=== PATIENT | female | born 1985 | race Hispanic/Latino ===

== ENCOUNTER 2020-10-08 09:20 | Outpatient (CLI) | payer SELFPAY ==
--- NOTE | ~2020-10-08 | MMUS_ITS ---
EXAMINATION: MM diagnostic yoav BI w barbara, US breast BI complete HISTORY: Bilateral breast pain, possible left breast dimpling TECHNIQUE: ML, MLO and cc 3-D tomosynthesis images of both breasts were performed and synthetic 2-D i mages were generated. CAD analysis was submitted and interpreted. High resolution complete bilateral breast ultrasound was performed. COMPARISON: None BREAST PARENCHYMAL COMPOSITION: There are scattered areas of fibroglandular density. FINDINGS: MAMMOGRAPHIC FINDINGS: No suspicious mass or architectural distortion, malignant calcification, skin thickening or retractio n is detected. ULTRASOUND: No suspicious mass, shadowing or cyst or other significant sonographic finding of either breast is no leonard. IMPRESSION: 1. No mammographic evidence of malignancy 2. Routine mammographic screening is recommended. BI-RADS Category 1: Negative Reviewed, dictated and finalized at location A. IMPRESSION: 1. No mammographic evidence of malignancy 2. Routine mammographic screening is recommended. BI-RADS Category 1: Negative
== END 2020-10-08 09:21 ==
PROVIDERS: Visit Provider Nurse Practitioner Family
DX: N64.4 Mastodynia (principal)
CPT/HCPCS: 76641; 77062; 77066; G0279

== ENCOUNTER 2021-09-24 08:20 | Emergency (ER) | payer SELFPAY ==
--- NOTE | ~2021-09-24 | XR_ITS ---
XR chest 2V DATE: 09/24/2021 08:51 INDICATION: Left chest pain, discomfort. Left arm and hand weakness. Recent Covid infection. TECHNIQUE: PA and lateral views COMPARISON: None FINDINGS: Normal heart size. No hilar or mediastinal enlargement. There is moderate bilateral hyperinflation. No pulmonary infiltrate or consolidation, pleural effusio n or pulmonary vascular congestion or pneumothorax. Osteopenia. IMPRESSION: Moderate bilateral hyperinflation No active cardiopulmonary disease Osteopenia Reviewed, dictated and finalized at location A.
[2021-09-24 08:21] VITALS: BP 141/75; PULSE 80; RESP 17; TEMP 36.6; O2SAT 100
--- NOTE | 2021-09-24 08:25 | ECG_ITS ---
Measurements Intervals [place] Rate: 68 P: 60 [place]: 157 QRS: 65 QRSD: 71 T: 42 QT: 342 QTc: 366 Interpretive Statements SINUS RHYTHM WITH MARKED SINUS ARRHYTHMIA LOW QRS VOLTAGE IN PRECORDIAL LEADS [QRS DEFLECTION < 1.0 mV IN CHEST LEADS] NO PREVIOUS ECG AVAILABLE FOR COMPARISON Electronically Signed On 09-24-2021 22:10:03 CDT by Melyssa Butterfield M.D.
[2021-09-24 08:29] VITALS: PULSE 62
[2021-09-24] MEDS: ASPIRIN 81 MG CHEWABLE TABLET 324 MG PO (08:37)
[2021-09-24 08:43] LABS: Basophils Percent Auto 0.3 % (0.2-1.2); Eosinophils Absolute Auto 0.1 K/mm3 (0-0.3); Eosinophils Percent Auto 1.5 % (0-4.4); Hematocrit 39.8 % (37.0-47.0); Immature Granulocyte Absolute 0.02 K/mm3 (0.00-0.031); Immature Granulocyte Percent A 0.3 % (0-0.5); Lymphocytes Absolute Auto 1.69 K/mm3 (0.9-3.2); Lymphocytes Percent Auto 22.7 % (18.3-44.2); Mean Corpuscular HGB Conc 32.7 g/dl (32-36); Mean Corpuscular Volume 85.6 fl (80-100); Mean Platelet Volume 10.7 fl (7.4-10.4); Monocytes Absolute Auto 0.4 K/mm3 (0.1-0.6); Monocytes Percent Auto 5.7 % (2.6-8.5); Neutrophils Absolute Auto 5.2 K/mm3 (1.3-6.7); Neutrophils Percent Auto 69.5 % (45.5-73.1); Platelet Count Result 264 k/mm3 (150-375); Red Blood Count 4.65 M/mm3 (4.2-5.4); Red Cell Distribution Width 13.7 % (11.5-14.5); White Blood Count 7.4 K/mm3 (4.5-10.0)
[2021-09-24 08:54] LABS: INR 1.1; Prothrombin Time 13.2 Seconds (11.1-14.7)
[2021-09-24 08:57] LABS: Alanine Aminotransferase 16 U/L (6-35); Alkaline Phosphatase 59 U/L (38-126); Anion Gap 6 mmol/L (8-16); Aspartate Amino Transferase 24 U/L (14-36); Bilirubin,Total 0.4 mg/dL (0.2-1.3); Blood Urea Nitrogen 9 mg/dL (7-17); Calcium 8.5 mg/dL (8.4-10.2); Carbon Dioxide 25 mmol/L (22-30); Chloride 106 mmol/L (98-107); Estimated CRCL calculation 105 ml/min; Estimated Glomerular Filt Rate > 60; Glucose 109 mg/dL (65-110); Lipase 59 U/L (23-300); Potassium 4.2 mmol/L (3.4-5.0); Sodium 137 mmol/L (137-145)
[2021-09-24 09:07] LABS: Troponin I < 0.012 ng/mL (0.000-0.034)
[2021-09-24 09:15] LABS: D Dimer 0.31 ug/mL (<0.48)
[2021-09-24 09:44] VITALS: BP 102/67; PULSE 58; RESP 12; O2SAT 100
--- NOTE | 2021-09-24 10:30 | ED.CHESTPAIN ---
HPI - Chest Pain General Chief Complaint: Chest Pain Stated Complaint: chest pain after covid Time Seen by Provider: 09/24/21 08:25 Source: patient Mode of arrival: ambulatory Limitations: no limitations History of Present Illness HPI narrative: 36-year-old otherwise healthy here with complaints of left-sided chest pain on and off for 1 week, patient states that she was recently diagnosed with COVID while at work this morning started having pain and left arm tingling. She denies any shortness of breath. No history of fever or chills. Denies any cough. No previous history of coronary artery disease MD complaint: chest pain Pain location: left chest Pain radiation: left arm Quality: aching Relieving factors: nothing Exacerbating factors: nothing Treatment prior to arrival: none Related Data Home Medications Medication Instructions Recorded Confirmed No Home Medications 09/24/21 09/24/21 Allergies Allergy/AdvReac Type Severity Reaction Status Date / Time No Known Allergies Allergy Unknown Unverified 09/24/21 08:29 Review of Systems Review of Systems: All systems reviewed & are unremarkable except as noted in HPI and below Constitutional: Constitutional: Reports no additional constitutional complaints Eyes: Eyes: Reports no additional eye complaints ENT: Reports system reviewed and no additional complaints, except as documented Cardiovascular: Cardiovascular: Reports as per HPI Respiratory: Respiratory: Reports no additional respiratory complaints Gastrointestinal: Gastrointestinal: Reports no additional gastrointestinal complaints Musculoskeletal: Musculoskeletal: Reports no additional musculoskeletal complaints Integumentary/Breasts: Skin/Breast: Reports system reviewed and no additional complaints, except as docu Exam Narrative: GENERAL: Well-appearing, well-nourished, and in no acute distress. HEAD: Normocephalic, atraumatic. EYES: PERRLA and EOMI.. NECK: Supple. CHEST: Clear to auscultation. No respiratory distress. HEART: Regular rate and rhythm. No murmur heard. Normal peripheral pulses. ABDOMEN: Soft, nontender, nondistended, normal active bowel sounds. EXTREMITIES: Normal range of motion. No edema. SKIN: Warm, dry, no rash. NEURO: No focal deficits. Alert and oriented x3. PSYCH: Normal mood and affect. Course Course Emergency Course: I did inform patient about her lab work, chest x-ray findings. She states she is feeling slightly better. Her pain most likely is musculoskeletal versus pleuritic. Advised her to take Tylenol ibuprofen for pain. Vital Signs Vital signs: Vital Signs Temperature 36.6 C 09/24/21 08:21 Pulse Rate 80 09/24/21 08:21 Respiratory Rate 17 09/24/21 08:21 Blood Pressure 141/75 H 09/24/21 08:21 Pulse Oximetry 100 09/24/21 08:21 Temperature 36.6 C 09/24/21 08:21 Pulse Rate 58 L 09/24/21 09:44 Respiratory Rate 12 09/24/21 09:44 Blood Pressure 102/67 09/24/21 09:44 Pulse Oximetry 100 09/24/21 09:44 MDM - Chest Pain Differential Diagnosis Differential diagnosis: Likely unstable angina pectoris, atypical chest pain and costochondritis Medical Records Data Attestation: I reviewed the patient's medical records. Lab Data Attestation: I reviewed the patient's lab results. Result diagrams: 09/24/21 08:33 09/24/21 08:33 Labs: Lab Results 09/24/21 09/24/21 09/24/21 Range/Units 08:33 08:33 08:33 WBC 7.4 (4.5-10.0) K/mm3 RBC 4.65 (4.2-5.4) M/mm3 Hgb 13.0 (12.0-15.0) g/dL Hct 39.8 (37.0-47.0) % MCV 85.6 (80-100) fl MCH 28.0 (26-34) pg MCHC 32.7 (32-36) g/dl RDW 13.7 (11.5-14.5) % Plt Count 264 (150-375) k/mm3 MPV 10.7 H (7.4-10.4) fl Immature Gran % (Auto) 0.3 (0-0.5) % Neut % (Auto) 69.5 (45.5-73.1) % Lymph % (Auto) 22.7 (18.3-44.2) % [place] % (Auto) 5.7 (2.6-8.5) % Eos % (Auto) 1.5 (0-4.4) % Baso % (Auto) 0.3 (0
[2021-09-24 11:21] VITALS: BP 105/74; PULSE 70; RESP 18; O2SAT 100
== END 2021-09-24 11:22 | disposition home or self-care (01) ==
PROVIDERS: Emergency Provider Family Medicine
DX: R07.89 Other chest pain (principal); Z86.16 Personal history of COVID-19; M85.88 Other specified disorders of bone density and structure, other site
CPT/HCPCS: 36415; 71046; 80053; 83690; 84484; 85025; 85380; 85610; 85730; 93005; 99284; A9270

== ENCOUNTER 2023-09-30 15:58 | Emergency (ER) | payer OTHER, SELFPAY ==
[2023-09-30] VITALS (7 sets, daily range): BP systolic 115–139; BP diastolic 71–86; PULSE 70–96; RESP 13–22; TEMP 36.7; O2SAT 97–100
--- NOTE | ~2023-09-30 | XR_ITS ---
XR chest 2V Ordering provider: Josué Gillespie History: 38 years Female with . CP, COUGH, CHILLS, STARTED YESTERDAY . Comparison: September 24, 2021 FINDINGS: MEDIASTINUM: The cardiac silhouette is not enlarged. LUNGS: No infiltrates, effusions or pneumothorax. OTHER: No free air under the diaphragm. IMPRESSION: No acute cardiopulmonary pathology. Reviewed, dictated and finalized at location A.
--- NOTE | ~2023-09-30 | CT_ITS ---
CTA chest PE protocol Ordering provider: Cecily Alberts PA-C History: 38 years Female with . cp, sob, + dimer . Comparison: None. Technique: CT angiogram chest was performed following timed intravenous injection of contrast. Thin s lice axial images and reformatted coronal images were obtained. Three dimensional reformatted images of the chest were also obtained using a [employer] workstation. Radiation reduction technique utilized. Findings: PULMONARY ARTERIES: No pulmonary embolus. VISUALIZED THORACIC INLET: Normal. MEDIASTINUM: Aorta/coronary arteries: Mild atheromatous disease. Heart/other: The heart is not enlarged. Lymph nodes: No mediastinal or hilar adenopathy. Prevascular lymph nodes are noted with small size. LUNGS: Nodular densities are seen in the right apical area and right upper lobe and also in the left lower l obe which may be focal pneumonia or nodules. Metastatic lesions and vasculitis also should be conside red. Nodule Seen in the apical area measures 1 cm. The right upper lobe nodules measures 0.7 cm and 0.7 cm . The nodule in the left lower lobe measures 9 mm. Follow-up advised. . No effusions. No pneumothorax . VISUALIZED UPPER ABDOMEN: the visualized upper abdomen is normal. MUSCULOSKELETAL: Soft tissues: The superficial soft tissues are normal. Bones: Age appropriate degenerative changes of the spine. IMPRESSION: 1. No pulmonary embolism. 2. Multiple nodules in the right upper lobe and left lower lobe which may be focal pneumonia nodules . Follow-up in 3 months is advised. Other differential as described above Clinical correlation advise d. Reviewed, dictated and finalized at location A. IMPRESSION: 1. No pulmonary embolism. 2. Multiple nodules in the right upper lobe and left lower lobe which may be f ocal pneumonia nodules. Follow-up in 3 months is advised. Other differential as described above Clinical correlation advised.
--- NOTE | 2023-09-30 15:58 | ECG_ITS ---
Test Date: 2023-09-30 16:05:12 Measurements Intervals [place] Rate: 87 P: 58 [place]: 145 QRS: 49 QRSD: 70 T: 45 QT: 302 QTc: 365 Interpretive Statements SINUS RHYTHM WITH SINUS ARRHYTHMIA LOW QRS VOLTAGE IN PRECORDIAL LEADS [QRS DEFLECTION < 1.0 mV IN CHEST LEADS] POOR R-WAVE PROGRESSION BORDERLINE ECG No previous ECG available for comparison Electronically Signed On 10-01-2023 07:02:28 CDT by Bob Gallegos M.D.
--- NOTE | 2023-09-30 16:11 | ED.CHESTPAIN ---
HPI - Chest Pain General Chief Complaint: Chest Pain <HERNAN Moreno Last Filed: 09/30/23 16:16> Stated Complaint: chest pain <HERNAN Moreno Last Filed: 09/30/23 16:16> Time Seen by Provider: 09/30/23 16:11 <HERNAN Moreno Last Filed: 09/30/23 16:16> Focused HPI: Patient is a 38 y/o female who presents to the ED with c/o CP. Patient reports she first noticed the chest pain in her right upper chest yesterday while at work. She began having cold sweats at that time also. Denies known fever. Chest pain has been intermittent throughout last night and into today. She does also report shortness of breath, pain in her right upper chest with deep breathing. Reports mild cough, myalgias. states that several people at work have been sick recently. Denies lower extremity pain or swelling. Denies history of blood clots. GENERAL: Well-appearing, obese with BMI of 38.1, and in no acute distress. HEAD: Normocephalic, atraumatic. CHEST: Clear to auscultation. ?No respiratory distress. No focal lung sounds. HEART: Regular rate and rhythm.? MSK: No tenderness along anterior chest wall. NEURO: ?Alert and oriented x3. Patient screened in triage and initial orders placed.? ?Additional care and disposition to be based upon?diagnostic testing and treatment. <HERNAN Moreno Last Filed: 09/30/23 16:16> Source: patient <HERNAN Moreno Last Filed: 09/30/23 16:16> Mode of arrival: ambulatory <HERNAN Moreno Last Filed: 09/30/23 16:16> Limitations: no limitations <HERNAN Moreno Last Filed: 09/30/23 16:16> Related Data Allergies/Adverse Reactions: Allergies Allergy/AdvReac Type Severity Reaction Status Date / Time No Known Allergies Allergy Unknown Unverified 09/24/21 08:29 <HERNAN Moreno Last Filed: 09/30/23 16:16> Review of Systems Review of Systems: CONSTITUTIONAL: Reports chills ENT: Reports congestion, sore throat CARDIOVASCULAR: Reports chest pain RESPIRATORY: Reports cough and dyspnea. <Manda Pagan PA-C - Last Filed: 09/30/23 22:21> All systems reviewed & are unremarkable except as noted in HPI and below <Manda Pagan PA-C - Last Filed: 09/30/23 22:21> PMFSH Past Medical History Medical History: Medical History (Updated 09/30/23 @ 22:18 by Manda Pagan PA-C) No active medical problems <Cecily Alberts PA-C - Last Filed: 09/30/23 16:16> Social History Social History: Social History (Updated 09/30/23 @ 22:11 by Manda Pagan PA-C) Smoking status: Never smoker <Cecily Alberts PA-C - Last Filed: 09/30/23 16:16> Exam Narrative: GENERAL: Well-appearing, well-nourished, and in no acute distress. HEAD: Normocephalic, atraumatic. EYES: EOMI. ENT: Nares clear, no rhinorrhea or epistaxis. Mucous membranes moist. Oropharynx without tonsillar hypertrophy exudate or other lesions. Bilateral TMs pearly hickey non-bulging NECK: Supple. No adenopathy or masses. CHEST: Clear to auscultation. No respiratory distress. No wheezes rales or rhonchi HEART: Regular rate and rhythm. No murmur heard. Normal peripheral pulses. EXTREMITIES: Normal range of motion. No edema. SKIN: Warm, dry, no rash. NEURO: No focal deficits. Alert and oriented x3. PSYCH: Normal mood and affect <Manda Pagan PA-C - Last Filed: 09/30/23 22:21> Course Course Emergency Course: Patient updated on workup and agrees with plan of care. Resting comfortably <Manda Pagan PA-C - Last Filed: 09/30/23 22:21> Vital Signs Vital signs: Vital Signs Temperature 98.1 F 09/30/23 15:58 Pulse Rate 95 09/30/23 15:58 Respiratory Rate 18 06/13/24 15:58 Blood Pressure 115/71 09/30/23 15:58 Pulse Oximetry 97 09/30/23 15:58 Oxygen Delivery Room Air 09/30/23 15:58 Temperature 98.1 F 09/30/23 15:58 Pulse Rate 78
[2023-09-30 18:29] LABS: Basophils Percent Auto 0.3 % (0.2-1.2); Eosinophils Absolute Auto 0.2 K/mm3 (0-0.3); Eosinophils Percent Auto 1.2 % (0-4.4); Hematocrit 43.1 % (37.0-47.0); Immature Granulocyte Absolute 0.06 K/mm3 (0.00-0.031); Immature Granulocyte Percent A 0.5 % (0-0.5); Lymphocytes Absolute Auto 2.11 K/mm3 (0.9-3.2); Lymphocytes Percent Auto 16.3 % (18.3-44.2); Mean Corpuscular HGB Conc 32.5 g/dl (32-36); Mean Corpuscular Hemoglobin 28.2 pg (26-34); Mean Corpuscular Volume 86.7 fl (80-100); Mean Platelet Volume 11.1 fl (7.4-10.4); Monocytes Absolute Auto 1.1 K/mm3 (0.1-0.6); Monocytes Percent Auto 8.3 % (2.6-8.5); Neutrophils Absolute Auto 9.5 K/mm3 (1.3-6.7); Neutrophils Percent Auto 73.4 % (45.5-73.1); Platelet Count Result 244 k/mm3 (150-375); Red Blood Count 4.97 M/mm3 (4.2-5.4); Red Cell Distribution Width 13.5 % (11.5-14.5)
[2023-09-30 18:41] LABS: Prothrombin Time 13.5 Seconds (11.1-14.7)
[2023-09-30 18:42] LABS: Partial Thromboplastin Time 26.4 Seconds (22.3-36.8)
[2023-09-30 18:47] LABS: Alanine Aminotransferase 17 U/L (6-35); Albumin Level 4.3 g/dL (3.5-5.1); Alkaline Phosphatase 78 U/L (38-126); Anion Gap 5 mmol/L (4-12); Aspartate Amino Transferase 28 U/L (14-36); Bilirubin,Total 0.5 mg/dL (0.2-1.3); Blood Urea Nitrogen 11 mg/dL (7-17); Calcium 9.1 mg/dL (8.4-10.2); Carbon Dioxide 27 mmol/L (22-30); Chloride 103 mmol/L (98-107); Estimated CRCL calculation 95 ml/min; Estimated Glomerular Filt Rate > 60; Glucose 94 mg/dL (65-110); Lipase 297 U/L (23-300); Potassium 4.7 mmol/L (3.4-5.0); Sodium 135 mmol/L (137-145)
[2023-09-30 18:57] LABS: Troponin I < 0.012 ng/mL (0.000-0.034)
[2023-09-30 19:04] LABS: D Dimer 0.54 ug/mL (<0.48)
[2023-09-30 20:23] LABS: Influenza A QL RT-PCR Negative (Negative); Influenza B QL RT-PCR Negative (Negative); RSV RNA, RT-PCR Negative (Negative); SARS-CoV-2 RNA PCR Negative (Negative)
[2023-09-30] MEDS: KETOROLAC 15 MG/ML VIAL (*BKC) IV PUSH (20:35)
--- NOTE | 2023-09-30 21:04 | ECG_ITS ---
Test Date: 2023-09-30 21:09:08 Measurements Intervals [place] Rate: 64 P: 62 [place]: 174 QRS: 69 QRSD: 70 T: 61 QT: 356 QTc: 369 Interpretive Statements SINUS RHYTHM LOW QRS VOLTAGE IN PRECORDIAL LEADS [QRS DEFLECTION < 1.0 mV IN CHEST LEADS] OTHERWISE WITHIN NORMAL LIMITS Compared to ECG 09/30/2023 16:05:12 SLIGHTLY DIFFERENT PRECORDIAL LEAD POSITION, OTHERWISE NO DIFFERENCE Electronically Signed On 10-01-2023 07:11:53 CDT by Bob Gallegos M.D.
[2023-09-30 21:34] LABS: Troponin I < 0.012 ng/mL (0.000-0.034)
[2023-09-30] MEDS: AMOXICILLIN 500 MG CAPSULE 1000 MG PO (22:38)
[2023-09-30] MEDS: AZITHROMYCIN 250 MG TABLET 500 MG PO (22:39)
== END 2023-09-30 22:46 | disposition home or self-care (01) ==
PROVIDERS: Family Medicine; Physician Assistant; Emergency Provider Physician Assistant
DX: J18.9 Pneumonia, unspecified organism (principal); Z20.822 Contact with and (suspected) exposure to COVID-19
CPT/HCPCS: 36415; 71046; 71275; 80053; 81025; 83690; 84484; 85025; 85380; 85610; 85730; 87637; 93005; 96374; 99284; A9270; J1885; Q9967

== ENCOUNTER 2024-03-20 15:26 | Outpatient (CLI) | payer OTHER, SELFPAY ==
--- NOTE | ~2024-03-20 | CT_ITS ---
CT Scan of the Chest without Contrast: Clinical Indication: Abnormal finding of lung field Technique: Contiguous sections were acquired throughout the chest without intravenous contrast. Dose reduction technique was used on this scan by utilizing automated exposure control and iterative recon struction technique. The dose-length product (DLP) was 228.61 mGy-cm. COMPARISON: 09/30/2023 Findings: There is no evidence of any significant mediastinal, hilar or axillary lymphadenopathy. The mediastin al soft tissues appear normal. There is no evidence of pleural or pericardial effusion. There is linear scarring or atelectasis at the lingula. No other significant pulmonary abnormality. Images through the upper abdomen reveal no abnormalities. Impression: Linear scarring or atelectasis in the lingula, otherwise clear lungs. Reviewed, dictated and finalized at [facility]. PSULATOR Impression: Linear scarring or atelectasis in the lingula, otherwise clear lungs.
== END 2024-03-20 15:27 | disposition home or self-care (01) ==
PROVIDERS: PCP Nurse Practitioner Family; Visit Provider Nurse Practitioner Family
DX: R91.8 Other nonspecific abnormal finding of lung field (principal)
CPT/HCPCS: 71250